=== PATIENT | male | born 1990 | race Caucasian/White ===

== ENCOUNTER 2017-04-01 23:05 | Emergency (ER) | payer SELFPAY ==
[2017-04-01 23:13] VITALS: BP 123/87
== END 2017-04-02 00:25 | disposition other institution (70) ==
LOC: ED 23:05
DX: S00.83XA Contusion of other part of head, initial encounter (principal); S60.410A Abrasion of right index finger, initial encounter; V49.40XA Driver injured in collision with unspecified motor vehicles in traffic accident, initial encounter; W22.10XA Striking against or struck by unspecified automobile airbag, initial encounter; Y93.89 Activity, other specified; Y92.89 Other specified places as the place of occurrence of the external cause; Y99.8 Other external cause status
CPT/HCPCS: 90715

== ENCOUNTER 2017-04-01 23:05 | Emergency (ER) | payer OTHER | END 2017-04-02 00:25 | disposition other institution (70) | LOC: ED 23:05 | DX: Z02.89 Encounter for other administrative examinations (principal) ==